=== PATIENT | male | born 1970 | race Caucasian/White ===

== ENCOUNTER 2016-09-16 14:04 | Emergency (ER) | payer SELFPAY ==
[~2016-09-16] VITALS: Ht 170.2 cm; Wt 88.0 kg
[2016-09-16 14:13] VITALS: Ht 170.2 cm; Wt 88.0 kg
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
[2016-09-16] MEDS ORDERED: BACITRACIN 0.9 GM OINT TOP ONE (15:30)
[2016-09-16] MEDS ORDERED: ACETAMINOPHEN 325 MG TAB PO ONE (15:30)
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
[2016-09-16 16:13] LABS: ADD UMIC NO; URINE BILIRUBIN (Dip) NEGATIVE (NEGATIVE); URINE BLOOD (Dip) NEGATIVE (NEGATIVE); URINE COLOR LT. YELLOW (YELLOW); URINE GLUCOSE (Dip) NEGATIVE (NEGATIVE); URINE KETONES (Dip) NEGATIVE (NEGATIVE); URINE LEUKOCYTE ESTERASE (Dip) NEGATIVE (NEGATIVE); URINE NITRITE (Dip) NEGATIVE (NEGATIVE); URINE TOTAL PROTEIN (Dip) NEGATIVE (NEGATIVE); URINE UROBILINOGEN (Dip) 0.2 E.U./dL (0.1-1.0)
[2016-09-16] MEDS ORDERED: ACET500C5 PO (17:03)
[2016-09-16] MEDS ORDERED: BACITUD TOP (17:05)
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
== END 2016-09-16 17:18 | disposition home or self-care (01) ==
LOC: FTE 14:04
DX: M54.5 Low back pain (principal); R07.9 Chest pain, unspecified; Z04.1 Encounter for examination and observation following transport accident
CPT/HCPCS: 71010; 72100; 81003